=== PATIENT | male | born 1995 | race Caucasian/White ===

== ENCOUNTER 2021-09-28 21:52 | Emergency (ER) | payer MEDICAID ==
[~2021-09-28] VITALS: Ht 167.6 cm; Wt 127.3 kg
[~2021-09-28 21:52] MED LIST: NO HOME MEDICATIONS; TAMIFLU 75MG75 MG PO
[2021-09-28 21:59] VITALS: TEMP 98.5
[2021-09-28 22:23] LABS: BASO # 0.1 K/mm3 (0.0-0.2); BASO % 0.3 % (0.0-2.0); EOS # 0.1 K/mm3 (0.0-0.7); EOS % 0.3 % (0.0-4.0); GRAN % 79.6 % (42.2-75.2); LYMPH # 1.9 K/mm3 (1.2-3.4); LYMPH % 12.8 % (20.0-51.0); MEAN CELL VOLUME 86 fl (80.0-100.0); MEAN CORPUSCULAR HEMOGLOBIN 31 pg (27-31); MEAN CORPUSCULAR HGB CONC 36 g/dl (33.0-37.0); MEAN PLATELET VOLUME 9.9 fl (7.4-10.4); MONO % 6.3 % (1.7-9.3); PLATELET COUNT 291 K/mm3 (130-400); RED BLOOD COUNT 5.22 M/mm3 (4.20-5.60); REDCELL DISTRIBUTION WIDTH-CV 12.4 % (11.5-14.5)
[2021-09-28 22:41] LABS: ALBUMIN 4.2 gm/dL (3.5-5.0); BILIRUBIN,TOTAL 0.6 mg/dL (0.2-1.2); CALCIUM 9.5 mg/dL (8.4-10.2); CREATININE, serum 0.77 mg/dL (0.72-1.25); POTASSIUM 4.2 mmol/L (3.5-4.5); TOTAL PROTEIN 8.3 gm/dL (6.2-8.1)
[2021-09-28 23:03] LABS: PROLACTIN 10.1 ng/mL (3.46-19.40); THYROID STIMULATING HORMONE 1.17 uIU/mL (0.350-4.940)
[2021-09-28 23:58] LABS: COLLECTION METHOD CLEAN CATCH
[2021-09-29 00:03] LABS: PH 5 (5-8); SQUAMOUS EPITHELIAL None Seen /hpf (0-10); URINE APPEARANCE Clear (CLEAR/HAZY); URINE BACTERIA None Seen /hpf (NONE SEEN); URINE BILIRUBIN Negative (NEGATIVE); URINE BLOOD Negative (NEGATIVE); URINE COLOR Yellow (YELLOW); URINE GLUCOSE 3+ (NEGATIVE); URINE KETONE 2+ (NEGATIVE); URINE LEUKOCYTE ESTERASE Negative (NEGATIVE); URINE NITRATE Negative (NEGATIVE); URINE PROTEIN(semi-quant) Negative (NEGATIVE); URINE RBC None Seen /hpf (0-2); URINE UROBILINOGEN Negative (NEGATIVE)
[2021-09-29] MEDS ORDERED: GLUCOPHAGE500 MG/TAB PO (00:23)
[2021-09-29] MEDS ORDERED: LANCETS MC (00:25)
[2021-09-29] MEDS ORDERED: FREESTYLE PREC1 EAC5 MC (00:25)
[2021-09-29 00:38] VITALS: BP 103/66; PULSE 85
== END 2021-09-29 00:35 | disposition home or self-care (01) ==
LOC: COL.ER 21:52
PROVIDERS: Physician Assistant
DX: E11.65 Type 2 diabetes mellitus with hyperglycemia (principal); E66.9 Obesity, unspecified; Z68.42 Body mass index [BMI] 45.0-49.9, adult
CPT/HCPCS: J1815; J7030